=== PATIENT | female | born 1995 | race Two or more races ===

== ENCOUNTER 2024-06-14 05:48 | Inpatient (IN) ==
[2024-06-14] MEDS ORDERED: OXYTOCIN 30 UNITS/NSS 30 UNITS/500 ML BAG IV PRN ×2 (06:53→23:55)
[2024-06-14 07:35] LABS: Hematocrit (blood only) 34.4 % (37.0-47.0); Hemoglobin 10.8 g/dl (12.0-16.0); Mean Corpuscular Hemoglobin 26.6 pg (25.0-34.0); Mean Corpuscular Hgb Conc 31.4 g/dL (32.0-36.0); Mean Corpuscular Volume 84.7 fL (80.0-100.0); Mean Platelet Volume 11.1 fL (9.4-12.4); Platelet Count 200 K/uL (130-400); RDW Standard Deviation 57.4 fL (36.4-46.3); Red Blood Count 4.06 M/uL (4.20-5.40); White Blood Count 5.58 K/ul (4.8-10.8)
[2024-06-14] MEDS: PENICILLIN GK 6 MU in SODIUM CHLORIDE 0.9% 250 ML IV STA (08:22)
[2024-06-14] MEDS: LACTATED RINGER'S 1,000 ML IV PRN (08:24)
[2024-06-14] MEDS: PENICILLIN GK 3 MU in DEXTROSE 5% 100 ML IV PRN (12:07)
--- NOTE | 2024-06-14 13:41 | Anesthesiology Consultation ---
Date of Service June 14, 2024 Assessment & Plan Chart Review Chart Review: Patient NOT seen in Pre Admission Testing and Acceptable Risk for Labor Epidural Consults Requested none ASA ASA2 Proposed Anesthesia Anesthesia Type: Labor Epidural Risk / Benefits Reviewed With: PT / POA / Parent / Guardian, Accepts Plan and Informed Consent Obtained History Height/Weight Height: 5 ft 3.78 in Weight: 83.461 kg Allergies Allergy/AdvReac Type Severity Reaction Status Date / Time No Known Allergies Allergy Verified 06/14/24 06:10 Medications Home Medications Medication Instructions Recorded Confirmed Last Taken colchicine (cardiac) 0.5 mg tablet 2 mg (4 x 0.5 mg) PO DAILY #360 09/01/23 06/14/24 06/13/24 18:00 tabs ferrous sulfate 27 mg iron tablet 27 mg PO DAILY 06/14/24 06/14/24 06/13/24 vits no.124-ferrous fum 1 tab PO DAILY 06/14/24 06/14/24 06/13/24 27 mg iron-folic acid 800 mcg tablet ( Vitamin) Active Medications Generic Name Dose Route Start Last Admin Trade Name Freq PRN Reason Stop Dose Admin Lactated Ringer's 1,000 mls @ 125 mls/hr 06/14/24 06:53 06/14/24 08:25 Lr IV 06/15/24 06:52 0 mls/hr .Q8H PRN Infusion L&D Protocol Protocol Penicillin G Potassium 3 mu/ 106 mls @ 100 mls/hr 06/14/24 09:53 06/14/24 12:07 Dextrose IV 06/24/24 09:52 100 mls/hr Q4H PRN Administration GBS(+) Until Delivery NPO Date Last Intake of Fluids: 06/14/24 Time Last Intake of Fluids: 13:30 Date Last Intake of Solids: 06/14/24 Time Last Intake of Solids: 06:00 Past Medical History Medical History Anal fissure Exercise / Class Metabolic Activity 1 > 8 Run/Swim/Ski/Tennis Past Family History Family History Other Rheumatoid arthritis Denies family history of Ovarian cancer Breast cancer Colorectal cancer Past Surgical History Surgical History S/P anal fissurectomy Past Anesthesia History No Hx of Anesthesia Complications and No Family Hx of Anesthesia Complications History of PONV No Hx of PONV and No Hx of Motion Sickness Social History Smoking Status: Never smoker tobacco type: pipe Do You Dip or Chew Tobacco: No Hx Alcohol Use: No Hx Substance Use: No substance use type: does not use Review of Systems ROS Unobtainable: All systems reviewed & are unremarkable except as noted in HPI & below Physical Exam Vital Signs Last Vital Signs Temp 36.9 C 06/14/24 11:00 Pulse 86 06/14/24 13:21 Resp 20 06/14/24 07:14 BP 106/61 06/14/24 13:21 ENMT Mouth: no TMJ abnormality Thyromental Distance: > or= 3.5 Finger Breadths Mallampati Class: II Neck normal visual inspection and trachea midline; neck extension not limited Respiratory normal respiratory effort Auscultation: lungs clear to auscultation bilaterally Cardiovascular Rate/Rhythm: regular rate and regular rhythm Heart Sounds: no murmur Musculoskeletal Spine: normal cervical ROM Extremities: full ROM of extremities Neurologic moves all extremities Psychiatric Orientation: alert and oriented x 3 Testing Laboratory Results 06/14/24 07:18
[2024-06-14] MEDS ORDERED: LIDOCAINE 2% MPF LOCAL 5 ML VIAL EPI PRN (13:55)
[2024-06-14] MEDS ORDERED: ROPIVACAINE 0.5% PF 5 MG/ML 20 ML VIAL EPI PRN (13:55)
[2024-06-14] MEDS ORDERED: NALOXONE HCL 0.4 MG/1 ML VIAL/CARP IV PRN (13:55)
[2024-06-14] MEDS ORDERED: NALBUPHINE HCL INJ 10 MG/ML AMP IV PRN (13:55)
[2024-06-14] MEDS ORDERED: NALOXONE HCL 1 MG in SODIUM CHLORIDE 0.9% 1,000 ML IV PRN (13:55)
[2024-06-14] MEDS ORDERED: diphenhydrAMINE 50 MG/ML VIAL IV PRN (13:55)
[2024-06-14] MEDS ORDERED: BUPIVACAINE 0.25% PF 30 ML VIAL EPI PRN (13:55)
[2024-06-14] MEDS ORDERED: ePHEDrine sulfate 50 MG/ML AMP IV PRN (13:55)
[2024-06-14] MEDS ORDERED: fentaNYL citrate PF 100 MCG/2 ML VIAL EPI PRN (13:55)
[2024-06-14] MEDS ORDERED: SODIUM CHLORIDE 0.9% PF INJ 10 ML VIAL EPI PRN (13:55)
[2024-06-14] MEDS: fentANYL 2 MCG/ML BUPIVacaine 0.125%-NSS 100ML BAG ONE (13:55)
[2024-06-14] MEDS: fentaNYL citrate PF 100 MCG/2 ML VIAL ONE (13:57)
[2024-06-14] MEDS: BUPIVACAINE 0.25% PF 30 ML VIAL ONE (13:57)
[2024-06-14] MEDS: LIDOCAINE 2%/EPINEPHRINE 1:200,000 20 ML PF ONE (13:57)
--- NOTE | 2024-06-14 15:12 | Labor Progress Brief Note ---
Date of Service June 14, 2024 Subjective Comfortable with epidural Assessment & Plan (1) Group B streptococcal infection during : Plan: PCN (2) PROM (premature rupture of membranes): Plan: Rupture with +mec and +GBS at 2am today. Patient with plan and initially wanting minimal interventions. Has since decided for epidural but continues to be resistant to idea of pitocin, hoping to avoid. Discussed indications at this point, risks of not using pitocin including infection, and risks of using pitocin which would be med side effects and/or distress. monitoring allows quick response if there were to be distress, however, so risks of medicine use are outweighed by benefits in my opinion, and patient was made tyrell re of this. ANA Nunez and FOB in room at this time during counseling. Admission and Anticipated Discharge Date Admission Date: June 14, 2024 Physical Exam Genitourinary: [place] Q6min FHT Cat 1 Cervix was checked by RN just before my arrival, she states 4cm currently. Prior check hours ago same RN called 3.5cm. Results & Data Vital Signs (Past 12 Hours) Vital Signs Temp Pulse Resp BP Pulse Ox 06/14/24 15:04 100 H 119/66 06/14/24 14:55 101 H 99 06/14/24 14:50 98 06/14/24 14:50 100 H 06/14/24 14:50 76 98/61 L 06/14/24 14:45 84 98 06/14/24 14:40 78 99 06/14/24 14:35 98 H 99 06/14/24 14:30 98 06/14/24 14:30 104 H 06/14/24 14:30 85 110/66 06/14/24 14:25 97 06/14/24 14:25 71 06/14/24 14:25 72 116/66 06/14/24 14:20 99 06/14/24 14:20 93 H 06/14/24 14:20 115 H 104/66 06/14/24 14:15 77 108/65 99 06/14/24 14:10 98 06/14/24 14:10 77 06/14/24 14:10 96 H 102/67 06/14/24 14:05 88 99 06/14/24 14:03 75 95/59 L 06/14/24 14:01 91 H 97/64 L 06/14/24 14:00 91 H 100 06/14/24 13:59 82 103/64 06/14/24 13:57 82 108/62 06/14/24 13:55 100 06/14/24 13:55 76 06/14/24 13:55 75 113/64 06/14/24 13:53 95 H 113/53 L 06/14/24 13:50 80 100 06/14/24 13:45 95 H 100 06/14/24 13:40 86 98 06/14/24 13:21 86 106/61 06/14/24 11:57 96 H 107/66 06/14/24 11:00 98.4 F 06/14/24 10:02 75 113/60 06/14/24 09:00 98.4 F 06/14/24 07:14 20 06/14/24 07:14 97.7 F 20 06/14/24 06:56 78 118/72 06/14/24 06:02 99.1 F 85 18 117/61 Coding Level of Care Code None Diagnoses Group B streptococcal infection during O98.819; B95.1 PROM (premature rupture of membranes) O42.90
[2024-06-14] MEDS: ePHEDrine sulfate 50 MG/ML AMP ONE (16:05)
[2024-06-14] MEDS: fentaNYL citrate PF 100 MCG/2 ML VIAL EPI STA (16:05)
[2024-06-14] MEDS: SODIUM CHLORIDE 0.9% PF INJ 10 ML VIAL ONE (16:05)
[2024-06-14] MEDS: BUPIVACAINE 0.25% PF 30 ML VIAL EPI STA (16:05)
[2024-06-14] MEDS: LIDOCAINE 2%/EPINEPHRINE 1:200,000 20 ML PF EPI STA (16:06)
[2024-06-14] MEDS: SODIUM CHLORIDE 0.9% PF INJ 10 ML VIAL EPI STA (16:13)
[2024-06-14] MEDS: OXYTOCIN 30 UNITS/NSS 30 UNITS/500 ML BAG IV PRN (21:28)
--- NOTE | 2024-06-14 21:31 | Labor Progress Brief Note ---
Date of Service June 14, 2024 Subjective Patient comfortable with epidural. Assessment & Plan (1) PROM (premature rupture of membranes): Plan: Again recommended pitocin, both to augment labor to achieve complete dilation, and to increase contraction frequency to avoid a prolonged and exhausting 2nd stage of labor. Patient and FOB now agreeable, all questions answered to stated satisfaction. (2) Group B streptococcal infection during : Admission and Anticipated Discharge Date Admission Date: June 14, 2024 Physical Exam Genitourinary: RN checked cervix, still has lip anterior and R lateral. FHT Cat 1 [place] Q5-6. Results & Data Vital Signs (Past 12 Hours) Vital Signs Temp Pulse Resp BP Pulse Ox 06/14/24 21:25 89 98 06/14/24 21:20 88 98 06/14/24 21:19 82 97/53 L 06/14/24 21:15 90 100 06/14/24 21:14 93 H 93 06/14/24 21:10 81 98 06/14/24 21:05 98 H 111/57 L 99 06/14/24 21:00 92 H 96 06/14/24 20:55 88 96 06/14/24 20:50 81 96 06/14/24 20:49 77 106/64 06/14/24 20:45 87 96 06/14/24 20:40 86 96 06/14/24 20:35 81 96 06/14/24 20:34 88 101/68 06/14/24 20:30 85 97 06/14/24 20:25 86 97 06/14/24 20:20 87 97 06/14/24 20:19 86 108/80 06/14/24 20:15 87 97 06/14/24 20:10 86 97 06/14/24 20:05 97 06/14/24 20:05 88 06/14/24 20:05 84 107/56 L 06/14/24 20:00 86 96 06/14/24 19:55 89 97 06/14/24 19:50 85 98 06/14/24 19:45 116 H 97 06/14/24 19:40 83 97 06/14/24 19:35 82 98 06/14/24 19:30 107 H 97 06/14/24 19:25 96 H 97 06/14/24 19:20 91 H 98 06/14/24 19:19 96 H 89/55 L 06/14/24 19:15 96 H 98 06/14/24 19:10 99.0 F 18 06/14/24 19:10 99.0 F 108 H 18 100 06/14/24 19:05 97 H 94/51 L 99 06/14/24 19:00 92 H 99 06/14/24 18:55 99 H 99 06/14/24 18:50 98 H 98 06/14/24 18:49 75 97/54 L 06/14/24 18:45 83 98 06/14/24 18:41 80 107/58 L 06/14/24 18:40 83 99 06/14/24 18:35 84 97 06/14/24 18:34 92 H 82/52 L 06/14/24 18:30 99 H 98 06/14/24 18:25 78 98 06/14/24 18:20 92 H 98 06/14/24 18:19 97 H 98/58 L 06/14/24 18:15 99 H 97 06/14/24 18:10 127 H 98 06/14/24 18:05 121 H 98 06/14/24 18:04 94 H 105/66 06/14/24 18:01 84 93 06/14/24 17:57 96 H 98 06/14/24 17:52 79 97 06/14/24 17:49 100 H 95/58 L 06/14/24 17:47 91 H 98 06/14/24 17:42 85 97 06/14/24 17:37 95 H 98 06/14/24 17:34 72 108/58 L 06/14/24 17:32 99 H 98 06/14/24 17:27 86 98 06/14/24 17:22 74 98 06/14/24 17:19 100 H 102/64 06/14/24 17:17 89 98 06/14/24 17:14 114 H 92 06/14/24 17:12 89 97 06/14/24 17:07 103 H 98 06/14/24 17:04 98.6 F 82 110/69 06/14/24 17:02 107 H 98 06/14/24 16:57 89 99 06/14/24 16:52 101 H 100 06/14/24 16:49 81 108/67 06/14/24 16:47 79 99 06/14/24 16:42 79 99 06/14/24 16:37 76 100 06/14/24 16:36 83 92 06/14/24 16:34 85 107/66 06/14/24 16:32 93 H 80 L 06/14/24 16:27 97 H 98 06/14/24 16:22 82 99 06/14/24 16:19 70 93/55 L 06/14/24 16:17 80 99 06/14/24 16:12 77 99 06/14/24 16:07 82 99 06/14/24 16:04 84 96/54 L 06/14/24 16:02 80 99 06/14/24 15:57 79 100 06/14/24 15:52 79 100 06/14/24 15:50 78 108/61 06/14/24 15:47 83 99 06/14/24 15:42 91 H 99 06/14/24 15:37 96 H 99 06/14/24 15:32 91 H 99 06/14/24 15:27 110 H 98 06/14/24 15:22 83 98 06/14/24 15:19 82 104/55 L 06/14/24 15:17 86 98 06/14/24 15:12 98 H 98 06/14/24 15:07 91 H 98 06/14/24 15:04 100 H 119/66 06/14/24 15:00 20 06/14/24 15:00 98.4 F 20 06/14/24 14:55 101 H 99 06/14/24 14:50 98 06/14/24 14:50 100 H 06/14/24 14:50 76 98/61 L 06/14/24 14:45 84 98 06/14/24 14:40 78 99 06/14/24 14:35 98 H 99 06/14/24 14:30 98 06/14/24 14:30 104 H 06/14/24 14:30 85 110/66 06/14/24 14:25 97 06/14/24 14:25 71 06/14/24 14:25 72 116/66 06/14/24 14:20 99 06/14/24 14:20 93 H 06/14/24 14:20 115 H 104/66 06/14/24 14:15 77 108/65 99 06/14/24 14:10 98 06/14/24 14:10 77 06/14/24 14:10 96 H 102/67 06/14/24 14:05 88 99 06/14/24 14:03 75 95/59 L 06/14/24 14:01 91 H 97/64 L 06/14/24 14:00 91 H 100 06/14/24 13:59 82 103/64 06/14/24 13:57 82 108/62 06/14/24 13:55 100 06/14/24 13:55 76 06/14/24 13:55 75 113/64 06/14/24 13:53 95 H 113/53 L 06/14/24 13:50 80 100 06/14/24 13:45 95 H 100 06/14/24 13:40 86 98 06/14/24 13:21 86 106/61 06/14/24 11:57 96 H 107/66 06/14/24 11:00 98.4 F 06/14/24 10:02 75 113/60 Coding Level of Care Code None Diagnoses PROM (premature rupture of membranes) O42.90 Group B streptococcal infection during O98.819; B95.1
[2024-06-14] MEDS: fentANYL 2 MCG/ML BUPIVacaine 0.125%-NSS 100ML BAG EPI PRN (22:25)
[2024-06-14] MEDS: LIDOCAINE 1% LOCAL 20 ML VIAL INFIL PRN (23:53)
--- NOTE | 2024-06-14 23:54 | Delivery Summary ---
Vaginal Delivery Summary Date of Service June 14, 2024 Vaginal Delivery Summary DIAGNOSES: 1. Roman intrauterine at 40w3d gestation. 2. Spontaneous onset of labor. 3. Group B Streptococcus Pos, treated. PROCEDURE: Spontaneous vaginal delivery and repair of second degree laceration. SURGEON: Alana Bocanegra MD. ATMOSPHERIC PHYSICS PROFESSOR: None. QUANTITATIVE BLOOD LOSS: 157 mL. COMPLICATIONS: None. PLACENTA: Spontaneous and intact with a 3-vessel cord. DISPOSITION: Stable to labor and delivery. DESCRIPTION: The patient pushed well and brought the head to in OA position. The infant's head was allowed to deliver with contraction force and no further active pushing, with the perineum protected during this time. There was no nuchal cord. The shoulders and body delivered without any difficulty, and the was placed on the maternal abdomen. It was vigorous and moving all extremities, and making respiratory efforts. The cord was doubly clamped by the MD and then cut by the FOB. The placenta delivered spontaneously and was noted to be intact and with a 3VC. The cervix, vagina and perineum were examined and were found to have a second degree laceration which was repaired in the usual manner with vicryl suture. The fundus was firm and lochia minimal immediately after delivery. [facility] Vaginal Delivery Charge Vaginal Delivery Codes: 77851 global code for the antepartum, delivery, and post-
[2024-06-14] MEDS ORDERED: oxyCODONE/ACETAMINOPHEN 5mg/325mg TAB PO PRN (23:55)
[2024-06-14] MEDS ORDERED: HYDROCORTISONE ACETATE 25 MG SUPP PR PRN (23:55)
[2024-06-14] MEDS ORDERED: ACETAMINOPHEN 325 MG TAB PO PRN (23:55)
[2024-06-15] MEDS: DIPHTHER/TETAN/PERTUS Vaccine (Tdap, Adol/Adult) 0.5mL IM ONE (00:17)
[2024-06-15] MEDS: BENZOCAINE 20% SPRY 85 APPLN/85 GM CAN EXT PRN (01:54)
[2024-06-15] MEDS: IBUPROFEN 600 MG TAB PO PRN (05:11)
--- NOTE | 2024-06-15 06:09 | Obstetrical Progress Note ---
Date of Service June 15, 2024 Assessment & Plan (1) care and examination: PPD#1 s/p at 40 wga: Stable. Rh+, gbs+, ri, vitals wnl, hgb stable Continue routine care, ambulation, diet as tolerated Goal for today work on Plan for DC tomorrow Subjective Ambulation: ambulating normally Voiding: no voiding problems Passing Gas:: Yes Diet Tolerance:: regular diet Lochia:: Small Feeding Type:: breast feeding Patient is a 28yo who is PPD#1 following at 40 weeks. Reports mild abd pain/cramping that is well managed w motrin. Having some trouble & is concerned about supply. Constitutional: no fever, no chills or no sweats Respiratory: no dyspnea Cardiovascular: no chest pain, no palpitations or no calf pain Breast: no breast pain Gastrointestinal: no nausea or no vomiting Genitourinary (female): no dysuria Neurologic: no headache(s) no changes in vision, no headaches Physical Exam General: Alert, oriented. No acute distress. Cardiac: Regular rate and rhythm, no murmurs, rubs, or gallops. Respiratory: Clear to auscultation bilaterally. No increased work of breathing. Symmetrical chest rise. No respiratory distress. Abdomen: Soft, nontender, nondistended. Bowel sounds present. Uterus: Uterine fundus firm, nontender, palpable at the level of the umbilicus Lower extremities: No lower extremity edema or swelling. No deep calf pain. Results & Data Vital Signs (Past 12 Hours) Vital Signs Temp Pulse Pulse Resp BP BP Pulse Ox 06/15/24 03:00 37.1 C 87 18 102/51 L 98 06/15/24 01:52 102/51 L 06/15/24 01:50 37.1 C 06/15/24 01:37 97 H 96/52 L 06/15/24 01:23 87 101/55 L 06/15/24 01:20 37.0 C 06/15/24 01:07 84 99/59 L 06/15/24 00:52 100 H 91/59 L 06/15/24 00:50 37.0 C 18 06/15/24 00:37 98 H 90/57 L 06/15/24 00:35 37.0 C 06/15/24 00:23 86 99 06/15/24 00:22 83 97/58 L 06/15/24 00:20 37.0 C 18 06/15/24 00:18 90 98 06/15/24 00:13 83 98 06/15/24 00:08 86 99 06/15/24 00:07 88 93/60 L 06/15/24 00:05 37.0 C 18 06/15/24 00:03 100 06/15/24 00:03 94 H 06/15/24 00:03 103 H 94 06/14/24 23:58 92 H 100 06/14/24 23:53 93 H 99 06/14/24 23:52 100 H 114/58 L 06/14/24 23:50 37.0 C 18 06/14/24 23:49 102 H 149/72 H 06/14/24 23:48 98 H 100 06/14/24 23:43 103 H 100 06/14/24 23:38 112 H 100 06/14/24 23:33 106 H 100 06/14/24 23:28 115 H 100 06/14/24 23:27 107 H 92 06/14/24 23:23 83 100 06/14/24 23:20 109 H 103/55 L 06/14/24 23:18 105 H 99 06/14/24 23:13 116 H 100 06/14/24 23:08 115 H 100 06/14/24 23:04 118 H 93/58 L 06/14/24 23:03 119 H 100 06/14/24 23:02 119 H 92 06/14/24 22:58 112 H 100 06/14/24 22:53 112 H 100 06/14/24 22:50 96 H 109/60 06/14/24 22:48 102 H 100 06/14/24 22:43 109 H 100 06/14/24 22:38 85 100 06/14/24 22:34 121 H 106/55 L 06/14/24 22:33 111 H 100 06/14/24 22:28 84 100 06/14/24 22:23 100 H 100 06/14/24 22:20 121 H 109/70 06/14/24 22:18 90 100 06/14/24 22:11 100 06/14/24 22:11 89 06/14/24 22:11 88 93 06/14/24 22:05 83 99 06/14/24 22:04 85 90/54 L 06/14/24 22:00 86 100 06/14/24 21:55 81 98 06/14/24 21:50 82 99 06/14/24 21:49 80 91/54 L 06/14/24 21:45 90 97 06/14/24 21:40 76 98 06/14/24 21:35 78 99 06/14/24 21:34 79 94/55 L 06/14/24 21:30 37.0 C 78 18 99 06/14/24 21:25 89 98 06/14/24 21:20 88 98 06/14/24 21:19 82 97/53 L 06/14/24 21:15 90 100 06/14/24 21:14 93 H 93 06/14/24 21:10 81 98 06/14/24 21:05 98 H 111/57 L 99 06/14/24 21:00 92 H 96 06/14/24 20:55 88 96 06/14/24 20:50 81 96 06/14/24 20:49 77 106/64 06/14/24 20:45 87 96 06/14/24 20:40 86 96 06/14/24 20:35 81 96 06/14/24 20:34 88 101/68 06/14/24 20:30 85 97 06/14/24 20:25 86 97 06/14/24 20:20 87 97 06/14/24 20:19 86 108/80 06/14/24 20:15 87 97 06/14/24 20:10 86 97 06/14/24 20:05 97 06/14/24 20:05 88 06/14/24 20:05 84 107/56 L 06/14/24 20:00 86 96 06/14/24 19:55 89 97 06/14/24 19:50 85 98 06/14/24 19:45 116 H 97 06/14/24 19:40 83 97 06/14/24 19:35 82 98 06/14/24 19:30 107 H 97 06/14/24 19:25 96 H 97 06/14/24 19:20 91 H 98 06/14/24 19:19 96 H 89/55 L 06/14/24 19:15 96 H 98 06/14/24 19:10 37.2 C 18 06/14/24 19:10 37.2 C 108 H 18 100 06/14/24 19:05 97 H 94/51 L 99 06/14/24 19:00 92 H 99 06/14/24 18:55 99 H 99 06/14/24 18:50 98 H 98 06/14/24 18:49 75 97/54 L 06/14/24 18:45 83 98 06/14/24 18:41 80 107/58 L 06/14/24 18:40 83 99 06/14/24 18:35 84 97 06/14/24 18:34 92 H 82/52 L 06/14/24 18:30 99 H 98 06/14/24 18:25 78 98 06/14/24 18:20 92 H 98 06/14/24 18:19 97 H 98/58 L 06/14/24 18:15 99 H 97 06/14/24 18:10 127 H 98 O2 Del Method 06/15/24 03:00 Room Air 06/15/24 01:52 06/15/24 01:50 06/15/24 01:37 06/15/24 01:23 06/15/24 01:20 06/15/24 01:07 06/15/24 00:52 06/15/24 00:50 06/15/24 00:37 06/15/24 00:35 06/15/24 00:23 06/15/24 00:22 06/15/24 00:20 06/15/24 00:18 06/15/24 00:13 06/15/24 00:08 06/15/24 00:07 06/15/24 00:05 06/15/24 00:03 06/15/24 00:03 06/15/24 00:03 06/14/24 23:58 06/14/24 23:53 06/14/24 23:52 06/14/24 23:50 06/14/24 23:49 06/14/24 23:48 06/14/24 23:43 06/14/24 23:38 06/14/24 23:33 06/14/24 23:28 06/14/24 23:27 06/14/24 23:23 06/14/24 23:20 06/14/24 23:18 06/14/24 23:13 06/14/24 23:08 06/14/24 23:04 06/14/24 23:03 06/14/24 23:02 06/14/24 22:58 06/14/24 22:53 06/14/24 22:50 06/14/24 22:48 06/14/24 22:43 06/14/24 22:38 06/14/24 22:34 06/14/24 22:33 06/14/24 22:28 06/14/24 22:23 06/14/24 22:20 06/14/24 22:18 06/14/24 22:11 06/14/24 22:11 06/14/24 22:11 06/14/24 22:05 06/14/24 22:04 06/14/24 22:00 06/14/24 21:55 06/14/24 21:50 06/14/24 21:49 06/14/24 21:45 06/14/24 21:40 06/14/24 21:35 06/14/24 21:34 06/14/24 21:30 06/14/24 21:25 06/14/24 21:20 06/14/24 21:19 06/14/24 21:15 06/14/24 21:14 06/14/24 21:10 06/14/24 21:05 06/14/24 21:00 06/14/24 20:55 06/14/24 20:50 06/14/24 20:49 06/14/24 20:45 06/14/24 20:40 06/14/24 20:35 06/14/24 20:34 06/14/24 20:30 06/14/24 20:25 06/14/24 20:20 06/14/24 20:19 06/14/24 20:15 06/14/24 20:10 06/14/24 20:05 06/14/24 20:05 06/14/24 20:05 06/14/24 20:00 06/14/24 19:55 06/14/24 19:50 06/14/24 19:45 06/14/24 19:40 06/14/24 19:35 06/14/24 19:30 06/14/24 19:25 06/14/24 19:20 06/14/24 19:19 06/14/24 19:15 06/14/24 19:10 06/14/24 19:10 06/14/24 19:05 06/14/24 19:00 06/14/24 18:55 06/14/24 18:50 06/14/24 18:49 06/14/24 18:45 06/14/24 18:41 06/14/24 18:40 06/14/24 18:35 06/14/24 18:34 06/14/24 18:30 06/14/24 18:25 06/14/24 18:20 06/14/24 18:19 06/14/24 18:15 06/14/24 18:10 Laboratory Results 06/15/24 05:44 Resident Activity Tracking Resident Involvement: Resident Care Provided Care Provided: Adult Hospital Medicine
[2024-06-15 06:22] LABS: Hematocrit (blood only) 28.6 % (37.0-47.0); Hemoglobin 9.1 g/dl (12.0-16.0); Mean Corpuscular Hemoglobin 27.2 pg (25.0-34.0); Mean Corpuscular Hgb Conc 31.8 g/dL (32.0-36.0); Mean Corpuscular Volume 85.6 fL (80.0-100.0); Mean Platelet Volume 11.4 fL (9.4-12.4); Platelet Count 185 K/uL (130-400); RDW Coefficient of Variation 18.9 % (11.5-14.5); RDW Standard Deviation 58.7 fL (36.4-46.3); Red Blood Count 3.34 M/uL (4.20-5.40); White Blood Count 7.73 K/ul (4.8-10.8)
[2024-06-15] MEDS: DOCUSATE SODIUM 100 MG CAP PO SCH (09:05)
[2024-06-15] MEDS: PRENATAL VITAMIN 1 TAB PO SCH (09:05)
[2024-06-15] MEDS: COLCHICINE 0.6 MG TAB PO SCH (09:06)
[2024-06-15] MEDS: bisacodyL 5 MG TABEC PO SCH (20:13)
[2024-06-16 01:08] VITALS: O2SAT 98
--- NOTE | 2024-06-16 06:45 | Obstetrical Progress Note ---
Date of Service <Serjio Olson MD - Last Filed: 06/16/24 08:33> June 16, 2024 Assessment & Plan <Serjio Olson MD - Last Filed: 06/16/24 08:33> (1) care and examination: PPD#2 s/p at 40 wga: Stable. Rh+, gbs+, ri, vitals wnl, hgb stable Continue routine care, ambulation, diet as tolerated, lanolin nipple cream prn Counseled on , should schedule outpatient appts w brand sales consultant Plan for DC later today <Doris Charles DO - Last Filed: 06/16/24 08:43> (1) care and examination: Subjective <Serjio Olson MD - Last Filed: 06/16/24 08:33> Patient is a 28yo who is PPD#2 following at 40 weeks. Reports mild abd pain/cramping that is well managed w motrin. Having some trouble & is concerned about supply. Tolerating meals, ambulating normally Voiding w/o issue, passing gas, having appropriate lochia Constitutional: no fever, no chills or no sweats Respiratory: no dyspnea Cardiovascular: no chest pain, no palpitations or no calf pain Breast: no breast pain Gastrointestinal: no nausea or no vomiting Genitourinary (female): no dysuria Neurologic: no headache(s) no changes in vision, no headaches Physical Exam <Serjio Olson MD - Last Filed: 06/16/24 08:33> General: Alert, oriented. No acute distress. Cardiac: Regular rate and rhythm, no murmurs, rubs, or gallops. Breast: Small ulceration on R nipple, no blood or discharge Respiratory: Clear to auscultation bilaterally. No increased work of breathing. Symmetrical chest rise. No respiratory distress. Abdomen: Soft, nontender, nondistended. Bowel sounds present. Uterus: Uterine fundus firm, nontender, palpable at the level of the umbilicus Lower extremities: No lower extremity edema or swelling. No deep calf pain. Results & Data <Serjio Olson MD - Last Filed: 06/16/24 08:33> Vital Signs (Past 12 Hours) Vital Signs Temp Pulse Resp BP Pulse Ox O2 Del Method 06/16/24 00:05 37 C 84 18 102/67 98 Room Air 06/15/24 19:30 36.9 C 106 H 18 101/68 100 Room Air 06/15/24 19:30 Room Air Laboratory Results 06/15/24 05:44 Supervising Physician <Doris Charles DO - Last Filed: 06/16/24 08:43> Co-Signing Physician Notes Resident Physician Supervision Note: I was present with Dr. Olson during the history and exam. I discussed the case with the resident and agree with the findings and plan as documented in the note. Any exceptions or clarifications are listed here: PPD#2 doing well. Reviewed DC instructions. 6w PP followup. Documented By: Doris Charles DO Resident Activity Tracking <Serjio Olson MD - Last Filed: 06/16/24 08:33> Resident Involvement: Resident Care Provided Care Provided: Adult Hospital Medicine
[2024-06-16 09:33] VITALS: RESP 20
[2024-06-16 10:57] LABS: Hematocrit (blood only) 32.9 % (37.0-47.0)
[2024-06-16 17:31] VITALS: BP 106/56; PULSE 94; TEMP 98.8
[2024-06-16] MEDS ORDERED: bisacodyL 10 MG SUPP PR PRN (23:55)
== END 2024-06-16 21:25 | disposition home or self-care (01) | DRG 806 ==
LOC: OPB 05:48 → 4S1 05:50 → 4E2 06-15 03:11